=== PATIENT | female | born 1945 | race Caucasian/White ===

== ENCOUNTER 2025-01-11 08:03 | Day surgery (SDC) | payer MEDICARE, BC, SELFPAY ==
[2025-01-11] VITALS (26 sets, daily range): BP systolic 86–145; BP diastolic 51–88; PULSE 63–93; RESP 12–23; TEMP 36–36.7; O2SAT 90–100; BMI 31.2
[2025-01-11] MEDS: LACTATED RINGERS 1000 ML 1,000 ML 100 ML IV ×2 (08:45→11:00)
[2025-01-11] MEDS: SODIUM CHLORIDE 0.9 % (FLUSH) 10 ML SYRINGE IVF (08:45)
[2025-01-11] MEDS: OXYCODONE (CR) 10 MG TAB.ER.12H PO (08:50)
[2025-01-11] MEDS: ACETAMINOPHEN 500 MG TABLET 1000 MG PO ×3 (08:50→21:40)
[2025-01-11] MEDS: fentaNYL 100 MCG/2 ML inj IVP (09:00)
[2025-01-11] MEDS: MIDAZOLAM HCL 1 MG/ML inj IVP (09:00)
--- NOTE | 2025-01-11 09:11 | SUR.PREOP ---
TIME?OUT:?0857, right shoulder PT/RN/MDA?VERIFICATION?OF?SURGICAL?SITE,?PROCEDURE,?AND?CONSENT OBTAINED?PRIOR?TO?INVASIVE?PROCEDURE.
[2025-01-11] MEDS: CEFAZOLIN 1 GM inj IVP (09:45)
[2025-01-11] MEDS: TRANEXAMIC ACID 100 MG/ML INJ 1000 MG IV (10:00)
--- NOTE | 2025-01-11 11:25 | P.NB_ITS ---
Nerve Block Nerve Block Time Seen by Provider: 09:04 Date Seen: 01/11/25 Type of block requested by surgeon for post-operative analgesia: supraclavicular Side: right Time out performed: Yes Verification of patient name: Yes Verification of date of : Yes Site marking: site marked Name of person performing procedure: Serge Continuous monitoring Was continuous monitoring of O2 sat, B/P, secured entrance monitor, recorded every 15 minutes?: Yes Procedure Checklist: sterile prep, needles and gloves Ultrasound guided. Images saved: Yes Medications given in 5ml increments after negative aspiration: Ropivicaine %: 0.5 mL: 20 Needle gauge: 22 Precedex (mcg): 25 Patient tolerated procedure well: Yes Block Charges Block Charge (with Pro Fee): Brachial Plexus Use of Ultrasound Machine for Block: Yes- US Guidance/pain block
--- NOTE | 2025-01-11 11:26 | P.ANES_ITS ---
Anesthesia Charges Start Date/Time Anesthesia Start Date: 01/11/25 Anesthesia Start Time: 09:29 Stop Date/Time Anesthesia Stop Date: 01/11/25 Anesthesia Stop Time: 11:59 Summary Extremes of Age - Over 70 or under 1: MDA Coding CPT Codes CPT Codes: ANESTH SHOULDER REPLACEMENT - 28082 ([id number]) P2 - PATIENT W/MILD SYST DISEASE, QK - ESCAPEMENT MATCHER 2-4 CNCRNT ANES PROC, QX - MINUTE CLERK FOR BASIC TRAFFIC SVC W/ MD MED DIRECTION Additional Codes: Summary - Extremes of Age - Over 70 or under 1: MDA ([id number])
--- NOTE | 2025-01-11 11:26 | W.ANESCHARGE ---
Anesthesia Charges Start Date/Time Anesthesia Start Date: 01/11/25 Anesthesia Start Time: 09:29 Stop Date/Time Anesthesia Stop Date: 01/11/25 Anesthesia Stop Time: 11:59 Summary Extremes of Age - Over 70 or under 1: MDA Coding CPT Codes CPT Codes: ANESTH SHOULDER REPLACEMENT - 80420 ([id number]) P2 - PATIENT W/MILD SYST DISEASE, QK - SUSPENDER MAKER 2-4 CNCRNT ANES PROC, QX - COMMUNITY HEALTH WORKER SVC W/ MD MED DIRECTION Additional Codes: Summary - Extremes of Age - Over 70 or under 1: MDA ([id number])
--- NOTE | 2025-01-11 11:37 | CRLHL7_ITS ---
For Patients: As a result of the Cures Act, medical imaging exams and procedure reports are released immediately into your electronic medical record. You may view this report before your referring provider. If you have questions, please contact your health care provider. INDICATION: Postop right shoulder arthroplasty. TECHNIQUE: Right shoulder two views. COMPARISON: 12/20/2024. FINDINGS: Right shoulder arthroplasty appears appropriately positioned. Soft tissue gas consistent with recent surgery. No acute osseous abnormality or other significant interval change. IMPRESSION: Expected changes status post right shoulder arthroplasty. Dictated by Lance Estevez MD @ 01/13/2025 8:34:23 AM (Electronically Signed)
--- NOTE | 2025-01-11 11:39 | PM.ORPRC ---
Procedure Note Date of procedure: 01/11/25 Procedure: PREOPERATIVE DIAGNOSIS: Right shoulder rotator cuff tear arthropathy POSTOPERATIVE DIAGNOSIS: Right shoulder rotator cuff tear arthropathy NAME OF OPERATION: Right upper extremity reverse shoulder arthroplasty SURGEON: Gerardo Duggan MD [employer] SALES REPRESENTATIVE: Marissa Quesada PA-C ANESTHESIA: General endotracheal ESTIMATED BLOOD LOSS: 100 mL COMPLICATIONS: None SPECIMENS: None DRAINS: None PREOPERATIVE ANTIBIOTICS: Ancef 2 grams IMPLANTS: 1. Tornier 29 mm x 35 mm baseplate 2. 36mm standard glenosphere 3. 5B humeral stem 4. High eccentric +0 humeral tray 5. 36mm +9 polyethylene INDICATIONS: The patient is a 79-year-old with a longstanding history of severe, unrelenting right shoulder pain secondary to rotator cuff tear arthropathy. Despite appropriate nonoperative management, including activity modification, anti-inflammatories, xalr-nxa-[id number] pain medication, physical therapy, and injections they continue to have pain and disability. Operative intervention was offered. The risks, benefits and expected outcomes were discussed in detail. These included but were not limited to: Infection, bleeding, injury to blood vessel or nerve, venous thromboembolism. All questions were answered to their satisfaction. Use of an office support assistant was necessary throughout the case for patient positioning and safety, soft tissue retraction, and closure. PROCEDURE: General anesthesia was administered. The patient was placed in the lazy beach chair position on the operating room table. The right upper extremity was prepped and draped in the usual sterile fashion. A standard deltopectoral incision was made. Subcutaneous dissection was taken with electrocautery to the deltopectoral interval. The cephalic vein was mobilized, lateral branches were cauterized. The vein was taken medially with the pectoralis. We bluntly entered the deltopectoral interval. We freed up the deltoid. The upper 1/3 of the insertion of the pectoralis was divided with cautery. The static retractor was placed. The clavipectoral fascia and CA ligament were divided. The circumflex vessels were controlled with electrocautery. The biceps was torn and retracted. A fiberWire suture was placed in the subscapularis. The subscap was subperiosteally elevated off of the lesser tuberosity. The humeral head was delivered into the wound. The intramedullary humeral cutting guide was placed. We made the cut at the anatomic neck, in 30? of retroversion. Humeral sounds were used to assess the diameter of the canal. The broach was placed and had good rotational stability. The calcar reamer was used and the protective base plate cover was placed. Attention was then turned to the glenoid. Hohmann retractors were placed posteriorly. The labrum and biceps stump were sharply debrided. The origin of the inferior glenohumeral ligaments were subperiosteally released off of the glenoid. The drill guide was placed. The guide pin was placed in 0? of cephalic tilt. The reamer was used to bleeding bone. The central drill was used x2. The standard base plate was placed. This had excellent purchase. Locking screws x 2 were placed. The glenosphere was placed, the set screw was tightened. Attention then returned to the humerus. We placed a high eccentric standard base plate and standard poly. We reduced the shoulder and took it through a range of motion. It was found to be stable with appropriate soft tissue tension. Trial humeral components were removed. We placed #2 FiberWire sutures in the lesser tuberosity for subsequent subscap repair. We assembled the humeral component on the back table. We placed it in the center of our subscapularis repair sutures and tapped it down to our humeral cut. This had excellent purchase. The shoulder was reduced and again was found to be stable with appropriate soft tissue tension. We did a 3 min dilute Betadine solution soak. We irrigated the wound with 3 L of normal saline via pulse lavage. We repaired the subscapularis to the lesser tuberosity with our previously placed FiberWire sutures. The deltopectoral interval was loosely reapproximated with an 0 Vicryl in an interrupted [id number]-[id number] fashion. Subcutaneous tissues were closed with the 2-0 Vicryl and a running 3-0 Monocryl suture. The skin was sealed with glue. A dry dressing and sling were applied. Sponge and needle counts were correct x2. The patient tolerated the procedure well, there were no apparent complications. They were awakened and extubated in the operating room, taken to the postanesthesia care unit in satisfactory condition. PLAN: The patient will be mobilized with physical therapy. The sling will be used for 6 weeks postoperatively. Active range of motion in forward flexion and abduction as tolerates. No external rotation greater than 0? for 6 weeks postoperatively. They will be discharged to home once medically appropriate.
--- NOTE | 2025-01-11 12:01 | P.ANES_ITS ---
Anesthesia Charges Start Date/Time Anesthesia Start Date: 01/11/25 Anesthesia Start Time: 09:29 Stop Date/Time Anesthesia Stop Date: 01/11/25 Anesthesia Stop Time: 11:59 Coding CPT Codes CPT Codes: ANESTH SHOULDER REPLACEMENT - 68098 ([id number]) P2 - PATIENT W/MILD SYST DISEASE, QK - MASH PREPARATORY OPERATOR 2-4 CNCRNT ANES PROC, QX - MARINE WATER TENDER SVC W/ MD MED DIRECTION
--- NOTE | 2025-01-11 12:01 | W.ANESCHARGE ---
Anesthesia Charges Start Date/Time Anesthesia Start Date: 01/11/25 Anesthesia Start Time: 09:29 Stop Date/Time Anesthesia Stop Date: 01/11/25 Anesthesia Stop Time: 11:59 Coding CPT Codes CPT Codes: ANESTH SHOULDER REPLACEMENT - 31824 ([id number]) P2 - PATIENT W/MILD SYST DISEASE, QK - WOOD WINDOW AND DOOR CRAFTSMAN 2-4 CNCRNT ANES PROC, QX - PIZZAMAKER SVC W/ MD MED DIRECTION
--- NOTE | 2025-01-11 12:36 | SUR.PHASEI ---
patient met discharge criteria per anesthesia
[2025-01-11] MEDS: LACTATED RINGERS 500 ML 250 ML IV (15:15)
--- NOTE | 2025-01-11 15:29 | PC.NURSE ---
End of shift: Pt arrived to the unit @ 1232. Pt AxOx4, pleasant, and cooperative with cares. CMS intact of the R shoulder. Bilateral radial pulses strong. Pt denies pain/nausea at this time. Pt asymptomatic with lower blood pressures, blog writer lowered the HOB and is actively administering 250 ml bolus of LR per MD Debus orders. Tolerating RA well. Tolerating ice chips well. Pt in bed with visitors at bedside. Call light within reach.
--- NOTE | 2025-01-11 15:30 | PM.IMCN1 ---
Date of Consult Patient: Other Consult date: 01/11/25 Requesting Physician: Orthopedics Primary Care Provider: Manuela Rice PA-C Consult Narrative Reason for consult: Medical management Narrative: Kaylee Barker is a 79 year old female past medical history significant for hyperlipidemia, hypothyroidism, osteopenia, vitamin-D deficiency, osteoarthritis, depression, hypertensive CKD is POD#0 s/p right reversed total shoulder, Dr. Duggan. There have been no perioperative complications or nursing concerns reported. Estimated total blood loss documented as 100ml. Updated and reviewed the active medical problems, past medical history, past surgical history, social history, allergies and medications in our electronic EMR. Postoperatively, patient is seen with daughter Agata at bedside. Reports feeling pretty good. Shoulder pain is currently well managed. Still has some numbness into the thumb and index finger. Denies headache or dizziness. Denies chest pain or shortness of breath. No dyspnea. Denies nausea, tolerating orals without vomiting. Initial systolic blood pressures upon arrival to the floor 80-90s, recovering quickly, responsive to small bolus . IVF Review of Systems Narrative: REVIEW OF SYSTEMS: Complete review of systems performed and negative unless otherwise stated in HPI or below. [facility] Medical History (Updated 01/11/25 @ 16:02 by Cher Guzman PA-C) Pruritus ani ?L29.0 - Pruritus ani (ICD-10) Chronic kidney disease, stage 3a ?N18.31 - Chronic kidney disease, stage 3a (ICD-10) Major depression ?F32.9 - Major depressive disorder, single episode, unspecified (ICD-10) Osteoporosis ?M81.0 - Age-related osteoporosis without current pathological fracture (ICD-10) Neuropathy ?G62.9 - Polyneuropathy, unspecified (ICD-10) Migraines ?G43.909 - Migraine, unspecified, not intractable, without status migrainosus (ICD-10) Lymphoma ?C85.90 - Non-Hodgkin lymphoma, unspecified, unspecified site (ICD-10) Hypertension ?I10 - Essential (primary) hypertension (ICD-10) Heart attack ?I21.9 - Acute myocardial infarction, unspecified (ICD-10) Breast cancer ?C50.919 - Malignant neoplasm of unspecified site of unspecified female breast (ICD-10) Joint pain ?M25.50 - Pain in unspecified joint (ICD-10) Urinary frequency ?R35.0 - Frequency of micturition (ICD-10) History of falling ?Z91.81 - History of falling (ICD-10) Hypertensive chronic kidney disease ?I12.9 - Hypertensive chronic kidney disease with stage 1 through stage 4 chronic kidney disease, or unspecified chronic kidney disease (ICD-10) Mixed stress and urge urinary incontinence ?N39.46 - Mixed incontinence (ICD-10) Depression, recurrent ?F33.9 - Major depressive disorder, recurrent, unspecified (ICD-10) 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 - Other specified mononeuropathies (ICD-10) Bursitis of hip, right ?M70.71 - Other bursitis of hip, right hip (ICD-10) Primary osteoarthritis of knees, bilateral ?M17.0 - Bilateral primary osteoarthritis of knee (ICD-10) Low back pain, unspecified ?M54.50 - Low back pain, unspecified (ICD-10) Spondylosis without myelopathy or radiculopathy, lumbar region ?M47.816 - Spondylosis without myelopathy or radiculopathy, lumbar region (ICD-10) Disc degeneration, lumbosacral ?M51.379 - Other intervertebral disc degeneration, lumbosacral region without mention of lumbar back pain or lower extremity pain (ICD-10) Lumbar stenosis with neurogenic claudication ?M48.062 - Spinal stenosis, lumbar region with neurogenic claudication (ICD-10) Diverticulitis ?K57.92 - Diverticulitis of intestine, part unspecified, without perforation or abscess without bleeding (ICD-10) Loss of hearing ?H91.90 - Unspecified hearing loss, unspecified ear (ICD-10) Vitamin D deficiency ?E55.9 - Vitamin D deficiency, unspecified (ICD-10) Hypokalemia ?E87.6 - Hypokalemia (ICD-10) Osteopenia ?M85.80 - Other specified disorders of bone density and structure, unspecified site (ICD-10) Hypothyroidism (acquired) ?E03.9 - Hypothyroidism, unspecified (ICD-10) Hyperlipidemia, unspecified ?E78.5 - Hyperlipidemia, unspecified (ICD-10) Obesity (BMI 30-39.9) ?E66.9 - Obesity, unspecified (ICD-10) Surgical History H/O Spinal surgery ?Z98.890 - Other specified postprocedural states (ICD-10) History of stapedectomy ?Z90.09 - Acquired absence of other part of head and neck (ICD-10) H/O cataract extraction ?Z98.49 - Cataract extraction status, unspecified eye (ICD-10) S/P hemilaminotomy ?Z98.890 - Other specified postprocedural states (ICD-10) 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) ?Z96.652 - Presence of left artificial knee joint (ICD-10) History of breast biopsy ?Z98.890 - Other specified postprocedural states (ICD-10) History of hysterectomy ?Z90.710 - Acquired absence of both cervix and uterus (ICD-10) History of appendectomy ?Z90.49 - Acquired absence of other specified parts of digestive tract (ICD-10) Social History Narrative: -Gene Former smoker (1984) What is your current living situation?: I presently have a place to live Problems where you live: no known problems In the past 12 months, utilities in danger of being shut off: no In past 12 months, lack of transportation kept you from medical appts, meetings, work, or getting things needed for daily living: no In the past 12 mos, have been you worried that your food would run out before you had money to buy more?: never true In the past 12 mos, the food you bought just didn't last and you didn't have money to buy more?: never true Smoking Status: Former smoker What tobacco products do you use: cigarettes Smoking quit date/years: >15 years ago Do you use any of these nicotine containing products: None Second hand tobacco smoke exposure: No How often do you have a drink containing alcohol: monthly or less Alcohol type: beer How many standard drinks containing alcohol do you have on a typical day: 1 or 2 AUDIT-C Alcohol total score: 1 Non-prescribed substance use: denies use Meds Home Medications and Allergies Home Medications ?Medication ?Instructions ?Recorded ?Confirmed ?Type levothyroxine 75 mcg tablet 75 mcg PO QAM 12/20/24 01/11/25 History losartan 50 mg-hydrochlorothiazide 1 tab PO DAILY 12/20/24 01/11/25 History 12.5 mg tablet metoprolol succinate 50 mg 50 mg PO DAILY 12/20/24 01/11/25 History tablet,extended release 24 hr venlafaxine 150 mg 150 mg PO DAILY 12/20/24 01/11/25 History capsule,extended release 24 hr acetaminophen 500 mg capsule 500 - 1,000 mg (1 - 2 x 500 mg) PO 01/11/25 Rx Q6H PRN pain #100 caps aspirin 81 mg tablet,delayed 81 mg PO DAILY 01/11/25 01/11/25 History release (Ecotrin Low Strength) oxycodone 5 mg tablet 2.5 - 5 mg (0.5 - 1 x 5 mg) PO 01/11/25 Rx Q4-6H PRN Pain #42 tabs sennosides 8.6 mg tablet (Senna 17.2 mg (2 x 8.6 mg) PO BID PRN 01/11/25 Rx Lax) constipation #100 tabs Allergies Allergy/AdvReac Type Severity Reaction Status Date / Time ciprofloxacin AdvReac Unknown Verified 01/11/25 08:16 quinapril AdvReac Unknown Verified 01/11/25 08:16 sulfamethoxazole AdvReac Unknown Verified 01/11/25 08:16 latex AdvReac Verified 01/11/25 08:16 Exam Narrative: Exam Narrative: PHYSICAL EXAM General: Pleasant, conversant, NAD HEENT: Normocephalic, atraumatic, sclera white, EOMI, oral mucosa moist Cardiovascular: RRR, S1S2. No pitting edema Pulmonary: CTA bilaterally without rhonchi, rales, expiratory wheezes. No dyspnea Neurological: Alert, answering questions appropriately, cranial nerves intact, no focal findings Extremities: No gross joint deformity or swelling. Postoperative dressing in place, dry. Immobilized. Neurovascularly intact Skin: Warm, dry. Const: Vital Signs, click to edit/add: Vital Signs - 24 hr 01/11/25 08:39 01/11/25 09:00 01/11/25 09:10 Temperature 97.3 F L Pulse Rate 73 74 68 Respiratory Rate 20 20 20 Blood Pressure 145/83 H 145/84 H 112/75 Blood Pressure [Ri ght Arm] Pulse Oximetry 97 99 98 Oxygen Delivery Me thod Room Air Nasal Cannula Nasal Cannula Oxygen Flow Rate 2 2 01/11/25 11:54 01/11/25 12:00 01/11/25 12:05 Temperature 97.1 F L 97.1 F L 97.1 F L Pulse Rate 70 67 68 Respiratory Rate 20 23 14 Blood Pressure 116/62 86/62 L 117/51 L Blood Pressure [Ri ght Arm] Pulse Oximetry 95 100 100 Oxygen Delivery Me thod OxyMask OxyMask OxyMask Oxygen Flow Rate 6 6 6 01/11/25 12:10 01/11/25 12:15 01/11/25 12:20 Temperature 97.1 F L 97.1 F L 97.1 F L Pulse Rate 69 70 74 Respiratory Rate 14 12 12 Blood Pressure 102/51 L 96/69 107/88 Blood Pressure [Ri ght Arm] Pulse Oximetry 100 98 93 Oxygen Delivery Me thod OxyMask Room Air Room Air Oxygen Flow Rate 6 01/11/25 12:25 01/11/25 12:32 01/11/25 12:45 Temperature 97.5 F L 96.8 F L 96.8 F L Pulse Rate 72 70 72 Respiratory Rate 12 14 16 Blood Pressure 103/75 120/74 103/67 Blood Pressure [Ri ght Arm] Pulse Oximetry 92 93 95 Oxygen Delivery Me thod Room Air Nasal Cannula Room Air Oxygen Flow Rate 0.5 01/11/25 13:00 01/11/25 13:15 01/11/25 13:30 Temperature 97.2 F L 97.5 F L 97.4 F L Pulse Rate 68 67 66 Respiratory Rate 16 16 16 Blood Pressure 100/60 98/61 97/66 Blood Pressure [Ri ght Arm] Pulse Oximetry 94 93 93 Oxygen Delivery Me thod Room Air Room Air Room Air Oxygen Flow Rate 01/11/25 14:00 01/11/25 14:30 01/11/25 14:59 Temperature 97.5 F L 97.5 F L Pulse Rate 68 63 Respiratory Rate 16 16 Blood Pressure 99/54 L 98/72 Blood Pressure [Ri ght Arm] 89/65 L Pulse Oximetry 92 91 Oxygen Delivery Me thod Room Air Room Air Oxygen Flow Rate Assessment and Plan Assessment and plan (1) Pain in shoulder: Problem comment: -POD#0 s/p right reverse total shoulderarthroplasty, Dr. Duggan -perioperative management including pain management and anticoagulation per Orthopedic surgery -encourage postoperative pulmonary hygiene -PT OT consults -plan to discharge home with spouse tomorrow. Daughter has experience in home health care and available to help Status: Acute (2) Hypothyroidism (acquired): Problem comment: -continue levothyroxine Status: Acute (3) Hypertension: Problem comment: -hold antihypertensives in setting of acute hypotension postoperatively, resuming on discharge Status: Acute Total Time Spent Total Time Spent: Today I spent 75 minutes seeing the patient, reviewing Expanse and EPIC notes/diagnostics, discussing the care plan with our care time that includes social work, PT/OT, pharmacy, RT, correction and documenting my impressions and plan in the medical record.
[2025-01-11] MEDS: LACTATED RINGERS 1000 ML 1,000 ML 75 ML IV (15:40)
[2025-01-11] MEDS: CEFAZOLIN 2 GM in 0.9 % SODIUM CHLORIDE Mini-bag 100 ML IVPB ×2 (16:22→23:51)
[2025-01-11] MEDS: SENNOSIDES 1 TAB TABLET 2 TAB PO (21:41)
[2025-01-12 02:20] VITALS: BP 159/81; PULSE 93; RESP 18; TEMP 36.5; O2SAT 97
[2025-01-12 03:00] VITALS: BP 165/93; PULSE 83; RESP 18; TEMP 36.7; O2SAT 97
[2025-01-12] MEDS: ACETAMINOPHEN 500 MG TABLET 1000 MG PO ×2 (04:05→10:11)
[2025-01-12] MEDS: OXYCODONE 5 MG TABLET PO ×2 (06:30→10:11)
[2025-01-12 06:40] LABS: Hematocrit 36.5 % (33.0-51.0); Hemoglobin* 12.2 gm/dL (12.0-16.0); Mean Corpuscular HGB Conc 33 gm/dL (32-36); Mean Corpuscular Hemoglobin 33 pg (26-34); Mean Corpuscular Volume 98 fL (80-100); Platelet Count* 249 K/uL (140-440); Red Blood Count 3.72 m/uL (4.00-5.20); Slide Review Reflex No; White Blood Count* 11.11 K/uL (4.50-11.00)
[2025-01-12 06:52] LABS: Sodium* 131 mmol/L (135-149)
[2025-01-12 06:55] LABS: Blood Urea Nitrogen* 17 mg/dL (7-30); Creatinine* 0.9 mg/dL (0.5-1.5); Est. Creatinine Clearance* 38.35; Estimated Glomerular Filt Rate 65 ml/min
[2025-01-12 07:00] VITALS: BP 115/63; PULSE 75; RESP 16; TEMP 36.7; O2SAT 100
[2025-01-12] MEDS: VENLAFAXINE ER 75 MG CAPSULE 150 MG PO (08:26)
[2025-01-12] MEDS: SENNOSIDES 1 TAB TABLET 2 TAB PO (08:26)
[2025-01-12] MEDS: LEVOTHYROXINE 75 MCG TABLET PO (08:26)
--- NOTE | 2025-01-12 08:26 | PC.NURSE ---
Shift note (0100-0900): Patient pleasant, alert and oriented. Ambulated with stand by assist. Dressing to right shoulder C, D & I. Sling in place. Given PRN Oxycodone for pain. Good urine output this shift. Pt saline locked.?
--- NOTE | 2025-01-12 08:48 | PM.ORPN ---
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 Interval history: Kaylee has 9/10 pain in the right shoulder. She has movement in sensation in the arm. She states her block was short-lived. Ortho Exam Narrative Exam Narrative: Alert and oriented x3. Patient is in no acute distress. Converses without labored breathing. Hearing is grossly intact. Ambulates with a normal gait. Examination of the right shoulder shows the dressing is intact. Mild tenderness is present. Mild edema is present. She is able to range her elbow, wrist, fingers. Sensation is intact in the hand. Capillary refill less than 2 seconds. Const Vital Signs, click to edit/add: Vital Signs - 24 hr 01/11/25 09:00 01/11/25 09:10 01/11/25 11:54 Temperature 97.1 F L Pulse Rate 74 68 70 Pulse Rate [Bilateral Radial] Pulse Rate [Pulse Oximeter] Respiratory Rate 20 20 20 Blood Pressure 145/84 H 112/75 116/62 Blood Pressure [Right Arm] Pulse Oximetry 99 98 95 Oxygen Delivery Method Nasal Cannula Nasal Cannula OxyMask Oxygen Flow Rate 2 2 6 01/11/25 12:00 01/11/25 12:05 01/11/25 12:10 Temperature 97.1 F L 97.1 F L 97.1 F L Pulse Rate 67 68 69 Pulse Rate [Bilateral Radial] Pulse Rate [Pulse Oximeter] Respiratory Rate 23 14 14 Blood Pressure 86/62 L 117/51 L 102/51 L Blood Pressure [Right Arm] Pulse Oximetry 100 100 100 Oxygen Delivery Method OxyMask OxyMask OxyMask Oxygen Flow Rate 6 6 6 01/11/25 12:15 01/11/25 12:20 01/11/25 12:25 Temperature 97.1 F L 97.1 F L 97.5 F L Pulse Rate 70 74 72 Pulse Rate [Bilateral Radial] Pulse Rate [Pulse Oximeter] Respiratory Rate 12 12 12 Blood Pressure 96/69 107/88 103/75 Blood Pressure [Right Arm] Pulse Oximetry 98 93 92 Oxygen Delivery Method Room Air Room Air Room Air Oxygen Flow Rate 01/11/25 12:32 01/11/25 12:45 01/11/25 13:00 Temperature 96.8 F L 96.8 F L 97.2 F L Pulse Rate 70 72 68 Pulse Rate [Bilateral Radial] Pulse Rate [Pulse Oximeter] Respiratory Rate 14 16 16 Blood Pressure 120/74 103/67 100/60 Blood Pressure [Right Arm] Pulse Oximetry 93 95 94 Oxygen Delivery Method Nasal Cannula Room Air Room Air Oxygen Flow Rate 0.5 01/11/25 13:15 01/11/25 13:30 01/11/25 14:00 Temperature 97.5 F L 97.4 F L 97.5 F L Pulse Rate 67 66 68 Pulse Rate [Bilateral Radial] Pulse Rate [Pulse Oximeter] Respiratory Rate 16 16 16 Blood Pressure 98/61 97/66 99/54 L Blood Pressure [Right Arm] Pulse Oximetry 93 93 92 Oxygen Delivery Method Room Air Room Air Room Air Oxygen Flow Rate 01/11/25 14:30 01/11/25 14:59 01/11/25 15:30 Temperature 97.5 F L 97.6 F Pulse Rate 63 75 Pulse Rate [Bilateral Radial] Pulse Rate [Pulse Oximeter] Respiratory Rate 16 16 Blood Pressure 98/72 107/54 L Blood Pressure [Right Arm] 89/65 L Pulse Oximetry 91 90 Oxygen Delivery Method Room Air Room Air Oxygen Flow Rate 01/11/25 15:40 01/11/25 15:40 01/11/25 16:00 Temperature 97.6 F Pulse Rate 70 Pulse Rate [Bilateral Radial] Pulse Rate [Pulse Oximeter] 75 Respiratory Rate 16 16 16 Blood Pressure 97/71 Blood Pressure [Right Arm] 107/54 L Pulse Oximetry 91 90 92 Oxygen Delivery Method Room Air Room Air Room Air Oxygen Flow Rate 0.5 01/11/25 16:12 01/11/25 17:00 01/11/25 18:09 Temperature Pulse Rate 81 85 Pulse Rate [Bilateral Radial] 75 Pulse Rate [Pulse Oximeter] Respiratory Rate 16 16 Blood Pressure 118/72 96/62 Blood Pressure [Right Arm] Pulse Oximetry 93 90 Oxygen Delivery Method Room Air Room Air Oxygen Flow Rate 01/11/25 19:00 01/11/25 23:00 01/11/25 23:00 Temperature 98.1 F Pulse Rate 73 Pulse Rate [Bilateral Radial] 73 Pulse Rate [Pulse Oximeter] 93 Respiratory Rate 20 20 Blood Pressure Blood Pressure [Right Arm] 119/64 Pulse Oximetry 90 92 93 Oxygen Delivery Method Room Air Nasal Cannula Nasal Cannula Oxygen Flow Rate 1 1 01/12/25 02:20 01/12/25 03:00 Temperature 97.7 F 98.0 F Pulse Rate Pulse Rate [Bilateral Radial] Pulse Rate [Pulse Oximeter] 93 83 Respiratory Rate 18 18 Blood Pressure Blood Pressure [Right Arm] 159/81 H 165/93 H Pulse Oximetry 97 97 Oxygen Delivery Method Room Air Nasal Cannula Oxygen Flow Rate 1.5 Assessment and Plan Assessment and plan (1) Status post reverse total shoulder replacement: Problem details: Right shoulder, 01/11/2025 Status: Acute Assessment and Plan: Plan for discharge is to home when they meet discharge criteria. Patient will wear the sling for 6 weeks post surgery. They can take it off for comfort and for exercises. Activity: no external rotation of the operative shoulder past 0? x 6 weeks. Forward flexion and abduction of the shoulder is allowed as tolerated. They will work on range of motion of the elbow, wrist, fingers once the block has wore off on the operative extremity. Patient will attend outpatient physical therapy for the operative shoulder . For discharge, oxycodone and Tylenol for pain. Do not drive while on narcotic pain medication. Drive only when safe to do so, when they have normal use/function of the upper extremity, this will likely take 6 weeks. Patient will minimize and discontinue the narcotic as soon as possible. Remove dressing in 1 week. Dressing is waterproof. May shower. Surgical glue covers the wound. Do not scrub the wound. Expect swelling and bruising about the shoulder and upper extremity. Use of ice/active ice without restriction. Notify Orthopedics if swelling is excessive. notify Orthopedics with any questions or concerns. [phone] Return to Orthopedic clinic next week for a wound check Return to clinic in [address] Duggan.
--- NOTE | 2025-01-12 11:51 | PC.NURSE ---
Pt discharged @ 1022 via wheelchair, accompanied by spouse. Back to home. IV removed. Discharge forms signed. Pain and nausea controlled. Pt AxOx4, good condition. Discharge questions answered by bond writer and understanding met by Pt.
== END 2025-01-12 10:22 | disposition home or self-care (01) ==
LOC: OR 08:07 → MEDSURG 08:09
PROVIDERS: PCP Internal Medicine; Visit Provider Orthopaedic Surgery
PROC: 0RRJ0JZ Replacement of Right Shoulder Joint with Synthetic Substitute, Open Approach (ICD-10-PCS; CPT 23472; principal; 2025-01-11 09:00)
DX: M75.101 Unspecified rotator cuff tear or rupture of right shoulder, not specified as traumatic (principal); G89.18 Other acute postprocedural pain; I12.9 Hypertensive chronic kidney disease with stage 1 through stage 4 chronic kidney disease, or unspecified chronic kidney disease; N18.31 Chronic kidney disease, stage 3a; E66.9 Obesity, unspecified; E55.9 Vitamin D deficiency, unspecified; Z79.82 Long term (current) use of aspirin; E78.5 Hyperlipidemia, unspecified; Z68.31 Body mass index [BMI] 31.0-31.9, adult; E03.9 Hypothyroidism, unspecified
CPT/HCPCS: 23472; 01638; 36415; 64415; 73030; 76942; 82565; 84132; 84295; 84520; 85027; 97110; 97165; 97530; 97535; 99100; A9270; C1713; C1776; J0690; J1100; J2250; J2371; J2405; J2704; J2795; J3010; J3490; J7120